=== PATIENT | female | born 1995 | race Caucasian/White ===

== ENCOUNTER 2017-07-29 18:02 | Observation (INO) | payer BC, OTHER ==
[~2017-07-29] VITALS: Ht 160 cm; Wt 67.1 kg
[2017-07-29] MEDS ORDERED: FERR-252 PO (18:26)
[2017-07-29] MEDS ORDERED: PREN-546 PO (18:26)
[2017-07-29 19:17] VITALS: BP 110/63
[2017-07-29 20:24] LABS: APPEARANCE,URINE CLEAR (CLEAR); BILIRUBIN,URINE 1+ (NEGATIVE); BLOOD, URINE NEGATIVE (NEGATIVE); LEUKOCYTE ESTERASE ,URINE NEGATIVE (NEGATIVE); NITRITE, URINE NEGATIVE (NEGATIVE); PH,URINE 7.5 (5.0-9.0); UGLUCOSE NEGATIVE (NEGATIVE)
[2017-07-29 20:27] LABS: COLOR,URINE AMBER (YELLOW)
== END 2017-07-29 20:53 | disposition home or self-care (01) ==
LOC: MLD 18:02
PROVIDERS: ADMIT Obstetrics & Gynecology; ATTEND Obstetrics & Gynecology
DX: O26.899 Other specified pregnancy related conditions, unspecified trimester (principal); R10.9 Unspecified abdominal pain; Z3A.00 Weeks of gestation of pregnancy not specified
CPT/HCPCS: 81003; C1758; G0378